=== PATIENT | female | born 2000 | race Caucasian/White ===

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

== ENCOUNTER 2022-07-13 07:15 | Emergency (ER) | payer BC ==
[2022-07-13] MEDS ORDERED: Lactated Ringers 1,000 ML IV ONE (08:06)
[2022-07-13] MEDS ORDERED: cefTRIAXone 1 GM in Sodium Chloride 0.9% 100 ML IV ONE (09:09)
[2022-07-13] MEDS ORDERED: Acetaminophen 325 MG Tab PO ONE ×2 (09:42→09:51)
[2022-07-13] MEDS ORDERED: Sodium Chloride 0.9% 10 ML Syringe FLUSH ONE (10:02)
[2022-07-13] MEDS ORDERED: Iopamidol 612 MG/ML 100 ML Bottle IVPUSH ONE (10:02)
[2022-07-13 10:53] LABS: CORONAVIRUS COVID-19 NAA NEGATIVE (NEGATIVE)
[2022-07-13] MEDS ORDERED: Morphine 4 MG/ML Syringe IVPUSH ONE (11:00)
[2022-07-13] MEDS ORDERED: diphenhydrAMINE 50 MG/ML SDV IVPUSH ONE (11:43)
[2022-07-13] MEDS ORDERED: methylPREDNISolone Sodium Succinate 125 MG/2 ML SDV IVPUSH ONE (11:43)
[2022-07-13] MEDS ORDERED: Famotidine 20 MG/2 ML SDV IVPUSH ONE (11:44)
[2022-07-13 12:36] LABS: C. TRACHOMATIS BY PCR NOT DETECTED; N. GONORRHOEAE BY PCR NOT DETECTED
== END 2022-07-13 13:50 | disposition home or self-care (01) ==
LOC: JD.ED 07:15
DX: N12 Tubulo-interstitial nephritis, not specified as acute or chronic (principal); Z72.0 Tobacco use; Z88.0 Allergy status to penicillin; Z88.5 Allergy status to narcotic agent; Z20.822 Contact with and (suspected) exposure to COVID-19
CPT/HCPCS: 0240U; 36415; 74177; 80053; 81001; 81025; 83690; 85025; 87086; 87088; 87186; 87491; 87591; 96361; 96365; 96375; 99284; A9270; J0696; J1200; J2270; J2930; J3490; J7120; Q9967

== ENCOUNTER 2024-06-13 00:06 | Emergency (ER) | payer BC, MEDICAID ==
[2024-06-13] MEDS ORDERED: Sodium Chloride 0.9% 10 ML Syringe FLUSH PRN (00:29)
[2024-06-13 01:00] LABS: BASOPHILS ABSOLUTE AUTO 0.1 K/mm3 (0.0-0.2); BASOPHILS PERCENT AUTO 0.5 % (0.0-1.0); EOSINOPHILS ABSOLUTE AUTO 0.1 K/mm3 (0.0-0.4); HEMATOCRIT 40.9 % (37.0-47.0); HEMOGLOBIN 13.5 gm/dl (12.0-16.0); IMMATURE GRAN ABSOLUTE AUTO 0.04 K/mm3 (0.00-0.05); IMMATURE GRAN PERCENT AUTO 0.4 % (0.0-0.4); LYMPHOCYTES ABSOLUTE AUTO 2.6 K/mm3 (1.0-4.8); LYMPHOCYTES PERCENT AUTO 22.3 % (24.0-44.0); MEAN CORPUSCULAR HEMOGLOBIN 30.3 pg (28.0-32.0); MEAN CORPUSCULAR VOLUME 91.9 fl (83.0-99.0); MEAN PLATELET VOLUME 10.6 fl (9.4-12.3); MONOCYTES ABSOLUTE AUTO 0.7 K/mm3 (0.0-0.8); MONOCYTES PERCENT AUTO 6.3 % (0.0-8.0); NEUTROPHILS ABSOLUTE AUTO 7.9 K/mm3 (1.8-7.7); NEUTROPHILS PERCENT AUTO 69.5 % (41.0-71.0); PLATELET COUNT,PLT 296 K/mm3 (150-400); RED BLOOD CELL COUNT 4.45 M/mm3 (4.10-5.30); WHITE BLOOD CELL COUNT,WBC 11.42 K/mm3 (3.9-11.3)
[2024-06-13 01:41] LABS: ALBUMIN 3.5 g/dl (3.4-5.0); ANION GAP 12.6 (5-15); BILIRUBIN TOTAL 0.3 mg/dL (0.2-1.0); BUN/CREATININE RATIO 16.7 (14-18); CALCIUM 8.9 mg/dL (8.5-10.1); CREATININE 0.6 mg/dL (0.55-1.02); EST CRCL DRUG DOSING (CG) 143.02 mL/min; POTASSIUM,K 3.6 mEq/L (3.5-5.1); PROTEIN TOTAL,TP 7.2 g/dl (6.4-8.2)
== END 2024-06-13 02:21 | disposition home or self-care (01) ==
LOC: JD.ED 00:06
DX: O20.8 Other hemorrhage in early pregnancy (principal); Z79.899 Other long term (current) drug therapy; Z88.0 Allergy status to penicillin; Z88.5 Allergy status to narcotic agent; Z3A.13 13 weeks gestation of pregnancy
CPT/HCPCS: 36415; 76817; 76817-26; 80053; 84702; 85025; 86850; 86900; 86901; 99283; 99284

== ENCOUNTER 2024-06-27 08:02 | Emergency (ER) | payer MEDICAID ==
[2024-06-27 10:43] LABS: BASOPHILS ABSOLUTE AUTO 0.1 K/mm3 (0.0-0.2); BASOPHILS PERCENT AUTO 0.4 % (0.0-1.0); EOSINOPHILS ABSOLUTE AUTO 0.1 K/mm3 (0.0-0.4); EOSINOPHILS PERCENT AUTO 0.9 % (0.0-6.0); HEMATOCRIT 40.4 % (37.0-47.0); HEMOGLOBIN 13.4 gm/dl (12.0-16.0); IMMATURE GRAN ABSOLUTE AUTO 0.03 K/mm3 (0.00-0.05); IMMATURE GRAN PERCENT AUTO 0.3 % (0.0-0.4); LYMPHOCYTES PERCENT AUTO 17.4 % (24.0-44.0); MEAN CORPUSCULAR HEMOGLOBIN 30.5 pg (28.0-32.0); MEAN CORPUSCULAR HGB CONC 33.2 g/dl (32.0-36.0); MEAN CORPUSCULAR VOLUME 91.8 fl (83.0-99.0); MEAN PLATELET VOLUME 10.9 fl (9.4-12.3); MONOCYTES ABSOLUTE AUTO 0.7 K/mm3 (0.0-0.8); MONOCYTES PERCENT AUTO 5.8 % (0.0-8.0); NEUTROPHILS ABSOLUTE AUTO 8.7 K/mm3 (1.8-7.7); NEUTROPHILS PERCENT AUTO 75.2 % (41.0-71.0); PLATELET COUNT,PLT 281 K/mm3 (150-400); WHITE BLOOD CELL COUNT,WBC 11.56 K/mm3 (3.9-11.3)
== END 2024-06-27 12:11 | disposition home or self-care (01) ==
LOC: JD.ED 08:02
DX: O20.9 Hemorrhage in early pregnancy, unspecified (principal); Z3A.16 16 weeks gestation of pregnancy; Z86.16 Personal history of COVID-19; Z79.899 Other long term (current) drug therapy; Z88.0 Allergy status to penicillin; Z88.5 Allergy status to narcotic agent
CPT/HCPCS: 36415; 76805; 76805-26; 85025; 86900; 86901; 99284